=== PATIENT | male | born 2000 | race African-American/Black ===

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

== ENCOUNTER 2021-01-04 01:36 | Emergency (ER) | payer OTHER ==
[2021-01-04] MEDS ORDERED: NA CHLORIDE 0.9% 1,000 ML ONE (02:01)
[2021-01-04 02:05] LABS: Urine Blood Negative (Negative); Urine Glucose Negative (Negative); Urine Protein Negative (Negative)
[2021-01-04 02:21] LABS: Basophils % 0.8 % (0-1.3); Hematocrit 47.6 % (39.6-49.0); Lymphocytes % 22.7 % (15.3-44.8); MPV 9.4 fL (7.6-11.3); RBC Red Blood Cell Count 5.44 M/uL (4.33-5.43)
[2021-01-04 02:38] LABS: Protime INR 1.19
[2021-01-04 02:55] LABS: ALT/SGPT 18 U/L (12-78); AST/SGOT 23 U/L (15-37); Albumin 4.3 g/dL (3.4-5.0); Alkaline Phosphatase 90 U/L (45-117); BUN Blood Urea Nitrogen 9 mg/dL (7-18); Bicarbonate 28 mmol/L (21-32); Bilirubin Direct 0.3 mg/dL (0-0.2); Bilirubin Total 1.8 mg/dL (0.2-1.0); Glucose Level 126 mg/dL (74-106); Protein, Total 7.8 g/dL (6.4-8.2); Sodium Level 139 mmol/L (136-145)
[2021-01-04 02:55] LABS: Barbiturates NEGATIVE (NEGATIVE); Benzodiazepines NEGATIVE (NEGATIVE); Cocaine NEGATIVE (NEGATIVE); METHAMPHETAM NEGATIVE (NEGATIVE); Methadone NEGATIVE (NEGATIVE); Opiates NEGATIVE (NEGATIVE); Phencyclidine NEGATIVE (NEGATIVE); THC Cannibis POSITIVE (NEGATIVE)
--- NOTE | 2021-01-04 04:51 | ER ---
Nurse's Notes [facility] Name: Selvin Fontanez Age: 20 yrs Sex: Male : 2000 Arrival Date: 01/04/2021 Time: 01:37 Bed 2 Private MD: Diagnosis: Alcohol Intoxication;Cannabis abuse with intoxication Presentation: 01/04 01:43 Chief complaint: Parent and/or Guardian states: friend bought pt home unresponsive, was em at a [employer] party and may have had alcohol/drugs at the [employer] party, pt unresponsive in triage. Coronavirus screen: Client denies travel out of the [place] in the last 14 days. Ebola Screen: Patient negative for fever greater than or equal to 101.5 degrees Fahrenheit, and additional compatible Ebola Virus Disease symptoms Patient denies exposure to infectious person. Patient denies travel to an Ebola-affected area in the 21 days before illness onset. No symptoms or risks identified at this time. Initial Sepsis Screen: Does the patient meet any 2 criteria? No. Patient's initial sepsis screen is negative. Does the patient have a suspected source of infection? No. Patient's initial sepsis screen is negative. Risk Assessment: Do you want to hurt yourself or someone else? Patient reports no desire to harm self or others. Onset of symptoms was January 04, 2021. 01:43 Method Of Arrival: Wheelchair em 01:43 Acuity: ABDIRASHID 2 em Historical: - Allergies: 01:45 No Known Allergies; em - PMHx: 01:45 None; em - PSHx: 01:45 None; em - Immunization history:: Adult Immunizations up to date. - Social history:: Smoking status: Patient denies any tobacco usage or history of. Screenin:45 Abuse screen: Denies threats or abuse. Nutritional screening: No deficits noted. jb4 Tuberculosis screening: No symptoms or risk factors identified. Fall Risk No IV (0 pts). Mental Status- Overestimates/Forgets Limitations (15 pts.). Total Cross Fall Scale indicates Low Risk Score (25-44 pts). Fall prevention measures have been instituted. Side Rails Up X 2 Placed close to Nursing Station Frequent Obs/Assesments occuring Family Present and informed to notify staff if they need to leave bedside As available Patient and Family Educated on Fall Prevention Program and strategies. Assessment: 01:45 General: Appears in no apparent distress. comfortable, Behavior is uncooperative. Pain: jb4 Unable to use pain scale. Patient is disoriented. Neuro: Level of Consciousness is confused, lethargic, Oriented to none. Cardiovascular: Patient's skin is warm and dry. Respiratory: Airway is patent Respiratory effort is even, unlabored, Respiratory pattern is regular, symmetrical. GI: No signs and/or symptoms were reported involving the gastrointestinal system. : No signs and/or symptoms were reported regarding the genitourinary system. EENT: No signs and/or symptoms were reported regarding the EENT system. Derm: Skin is intact, Skin is dry, Skin is normal, Skin temperature is warm. Musculoskeletal: Circulation, motion, and sensation intact. Range of motion: intact in all extremities. 01:45 Reassessment: Pt currently in CT. jb4 03:00 Reassessment: Pt is resting in bed with eyes closed. Respiration are equal and jb4 unlabored. No s/s of pain or distress noted. Parents remain at the bedside. Provider notified of ETOH level, no new orders at this time. 04:12 Reassessment: Pt started to desat, rapid response button hit by IAN Mcintosh. Placed on jb4 Non-rebreather \T\ 15L, no response to sternal rub. Provider at the bedside. Attempted to insert nasal trumpet. Pt awoke to painful stimuli. Satting 100% on RA. Remains Lethargic, is confused, claims to not recognize his parents. 05:06 Reassessment: Patient appears in no apparent distress at this time. Patient and/or jb4 family updated on plan of care and expected duration. Pain level reassessed. Patient is alert, oriented x 3, equal unlabored respirations, skin warm/dry/pink. Vital Signs: 01:43 BP 102 / 65; Pulse 65; Resp 18; Temp 97.8; Pulse Ox 100% on R/A; Weight 90.72 kg; em 02:30 BP 104 / 68; Pulse 78; Resp 22; Pulse Ox 96% on R/A; lp1 03:30 BP 117 / 81; Pulse 81; Resp 20; Pulse Ox 100% on R/A; jb4 04:15 BP 106 / 69; Pulse 84; Resp 21; Pulse Ox 100% on R/A; jb4 ED Course: 01:37 Patient arrived in ED. am4 01:45 Triage completed. em 01:45 Arm band placed on. em 01:45 Patient has correct armband on for positive identification. Bed in low position. Call jb4 light in reach. Side rails up X 1. Seizure precautions initiated. business insight and analytics manager on. Pulse ox on. NIBP on. 01:45 Initial lab(s) drawn, by hi, sent to lab. Inserted saline lock: 18 gauge in right jb4 antecubital area, using aseptic technique. Blood collected. 01:47 Brayden Pisano MD is Attending Physician. [facility] 02:21 Ted Anderson, RN is Primary Nurse. jb4 02:42 CT Head C Spine In Process Unspecified. EDMS 05:06 No provider procedures requiring assistance completed. IV discontinued, intact, jb4 bleeding controlled, No redness/swelling at site. Pressure dressing applied. Administered Medications: 01:46 Drug: NS 0.9% 1000 ml Route: IV; Rate: 1 bolus; Site: right antecubital; em 02:45 Follow up: Response: No adverse reaction; IV Status: Completed infusion; IV Intake: jb4 1000ml Intake: 02:45 IV: 1000ml; Total: 1000ml. jb4 Outcome: 04:50 Discharge ordered by . [facility] 05:06 Discharged to home via wheelchair, with family. jb4 05:06 Condition: stable 05:06 Discharge instructions given to patient, family, Instructed on discharge instructions, follow up and referral plans. Demonstrated understanding of instructions, follow-up care. 05:08 Patient left the ED. jb4 Signatures: Dispatcher [employer] Juan A Vasquez, RN RN Dayna Holley, RN RN 1 Ted Anderson, RN RN jb4 Brayden Pisano MD MD mh7 Martinez, Ashley [facility]
--- NOTE | 2021-01-04 04:51 | EDPHYS ---
Physician Documentation [facility] Name: Selvin Fontanez Age: 20 yrs Sex: Male : 2000 Arrival Date: 01/04/2021 Time: 01:37 Bed 2 Private MD: ED Physician Brayden Pisano HPI: 01/04 03:57 This 20 yrs old Black Male presents to ER via Wheelchair with complaints of Altered mh7 Mental Status. 03:57 The patient presents with decreased mental status. Onset: The symptoms/episode mh7 began/occurred today. Onset: The symptoms/episode began/occurred at an unknown time. Possible causes: drug use, Was at a [employer] party, alcohol, Was at a alliance party today. Associated signs and symptoms: The patient has no apparent associated signs or symptoms. Current symptoms: In the emergency department the patient's symptoms are unchanged from the initial presentation. Patient's baseline: Neuro: alert and fully oriented, Motor: no deficits, Ambulation: walks without assistance, Speech: normal. Historical: - Allergies: 01:45 No Known Allergies; em - PMHx: 01:45 None; em - PSHx: 01:45 None; em - Immunization history:: Adult Immunizations up to date. - Social history:: Smoking status: Patient denies any tobacco usage or history of. ROS: 03:57 Unable to obtain ROS due to altered mental status. mh7 Exam: 03:57 Head/Face: Normocephalic, atraumatic. Eyes: Pupils equal round and reactive to light, mh7 extra-ocular motions intact. Lids and lashes normal. Conjunctiva and sclera are non-icteric and not injected. Cornea within normal limits. Periorbital areas with no swelling, redness, or edema. ENT: Nares patent. No nasal discharge, no septal abnormalities noted. Tympanic membranes are normal and external auditory canals are clear. Oropharynx with no redness, swelling, or masses, exudates, or evidence of obstruction, uvula midline. Mucous membranes moist. Neck: Trachea midline, no thyromegaly or masses palpated, and no cervical lymphadenopathy. Supple, full range of motion without nuchal rigidity, or vertebral point tenderness. No Meningismus. Chest/axilla: Normal chest wall appearance and motion. Nontender with no deformity. No lesions are appreciated. Cardiovascular: Regular rate and rhythm with a normal S1 and S2. No gallops, murmurs, or rubs. Normal PMI, no JVD. No pulse deficits. Respiratory: Lungs have equal breath sounds bilaterally, clear to auscultation and percussion. No rales, rhonchi or wheezes noted. No increased work of breathing, no retractions or nasal flaring. Abdomen/GI: Soft, non-tender, with normal bowel sounds. No distension or tympany. No guarding or rebound. No evidence of tenderness throughout. Back: No spinal tenderness. No costovertebral tenderness. Full range of motion. Skin: Warm, dry with normal turgor. Normal color with no rashes, no lesions, and no evidence of cellulitis. MS/ Extremity: Pulses equal, no cyanosis. Neurovascular intact. Full, normal range of motion. 03:57 Constitutional: The patient appears Somnolent, arousal to tactile stimuli 03:57 Neuro: Orientation: unable to test, AMS, Mentation: unable to test, AMS, Memory: unable to test, the patient is clinically intoxicated, Cranial nerves: unable to test, AMS, Cerebellar function: unable to test, AMS, Motor: moves all fours, Sensation: no obvious gross deficits, Gait: not tested. seizure activity, is not displayed by the patient, Abnormal movements: there are no abnormal movements. Vital Signs: 01:43 BP 102 / 65; Pulse 65; Resp 18; Temp 97.8; Pulse Ox 100% on R/A; Weight 90.72 kg; em 02:30 BP 104 / 68; Pulse 78; Resp 22; Pulse Ox 96% on R/A; lp1 03:30 BP 117 / 81; Pulse 81; Resp 20; Pulse Ox 100% on R/A; jb4 04:15 BP 106 / 69; Pulse 84; Resp 21; Pulse Ox 100% on R/A; jb4 MDM: 04:48 Differential Diagnosis: electrolyte abnormality, alcohol intoxication, hypoglycemia, mh7 intracranial bleed, overdose, seizure, volume depletion. Data reviewed: vital signs, nurses notes, lab test result(s), CBC, drug level(s), alcohol, electrolytes, urinalysis, urine drug screen, EKG, radiologic studies, CT scan. Data interpreted: Pulse oximetry: on room air is 100 %. Interpretation: normal. Counseling: I had a detailed discussion with the patient and/or guardian regarding: the historical points, exam findings, and any diagnostic results supporting the discharge/admit diagnosis, lab results, radiology results, the need for outpatient follow up, to return to the emergency department if symptoms worsen or persist or if there are any questions or concerns that arise at home. Response to treatment: the patient's symptoms have resolved after treatment, the patient's blood pressure is in an acceptable range, mental status has returned to baseline, the patient no longer shows bradycardia, the patient is not short of breath, the patient is not tachycardic, the patient's pain is gone, the patient's temperature has normalized. 04:50 Patient medically screened. [facility] 01/04 01:46 Order name: Acetaminophen 01/04 01:46 Order name: Basic Metabolic Panel; Complete Time: 04:11 01/04 01:46 Order name: CBC with Diff; Complete Time: 02:43 01/04 01:46 Order name: ETOH Level; Complete Time: 04:11 01/04 01:46 Order name: Hepatic Function; Complete Time: 04:11 01/04 01:46 Order name: PT-INR; Complete Time: 02:43 01/04 01:46 Order name: Ptt, Activated; Complete Time: 02:43 01/04 01:46 Order name: Salicylate; Complete Time: 04:11 01/04 01:46 Order name: Urine Drug Screen; Complete Time: 04:11 01/04 01:46 Order name: EKG; Complete Time: 01:47 01/04 01:47 Order name: Acetaminophen Level; Complete Time: 04:11 [facility] 01/04 01:53 Order name: CT Head C Spine [facility] 01/04 02:04 Order name: Urine Dipstick-Ancillary; Complete Time: 02:43 [facility] 01/04 01:46 Order name: EKG - Nurse/Tech; Complete Time: 02: 01/04 01:46 Order name: IV Saline Lock; Complete Time: 02: 01/04 01:46 Order name: Labs collected and sent; Complete Time: 02:21 01/04 01:46 Order name: Suicide Screening ([place]); Complete Time: 02: 01/04 01:46 Order name: Urine Dipstick-Ancillary (obtain specimen); Complete Time: 02:21 em Administered Medications: 01:46 Drug: NS 0.9% 1000 ml Route: IV; Rate: 1 bolus; Site: right antecubital; em 02:45 Follow up: Response: No adverse reaction; IV Status: Completed infusion; IV Intake: jb4 1000ml Disposition: 01/04/21 04:50 Discharged to Home. Impression: Alcohol Intoxication, Cannabis abuse with intoxication. - Condition is Stable. - Discharge Instructions: Cannabis Use Disorder, Alcohol Intoxication, [id number]. - Medication Reconciliation Form, Thank You Letter, Antibiotic Education, Prescription Opioid Use form. - Follow up: Private Physician; When: 1 - 2 days; Reason: Worsening of condition, Recheck today's complaints, Continuance of care, Re-evaluation by your physician. - Problem is new. - Symptoms have improved. Signatures: Dispatcher [employer] EDJuan A Adams RN RN em Ted Anderson RN RN jb4 Brayden Pisano MD MD mh7 Corrections: (The following items were deleted from the chart) 05:08 04:50 01/04/2021 04:50 Discharged to Home. Impression: Alcohol Intoxication; Cannabis jb4 abuse with intoxication. Condition is Stable. Forms are Medication Reconciliation Form, Thank You Letter, Antibiotic Education, Prescription Opioid Use. Follow up: Private Physician; When: 1 - 2 days; Reason: Worsening of condition, Recheck today's complaints, Continuance of care, Re-evaluation by your physician. Problem is new. Symptoms have improved. mh7
[2021-01-04 05:12] VITALS: TEMP 97.8
[2021-01-04 05:15] VITALS: O2SAT 100
[2021-01-04 05:17] VITALS: BP 106/69
--- NOTE | 2021-01-05 08:25 | EKG ---
Test Date: 2021-01-04 Test Time: 01:48:14 [employer]: FRANCIS MEASUREMENT RESULTS: Intervals: Rate: 85 OR: 172 QRSD: 90 QT: 356 QTc: 423 [place]: P: 75 OR: 172 QRS: 92 T: 73 INTERPRETIVE STATEMENTS: Normal sinus rhythm Rightward axis Early repolarization Borderline ECG No previous ECG available for comparison Electronically Signed On 01-05-21 08:23:59 CDT by Quentin Banegas
--- NOTE | 2021-01-05 10:56 | RAD REPORT ---
EXAM DESCRIPTION: CT - [facility] - 01/04/2021 6:39 am CLINICAL HISTORY: The patient is 20 years old and is Male; AMS TECHNIQUE: Axial computed tomography images of the head/brain and cervical spine without intravenous contrast. Sagittal and coronal reformatted images were created and reviewed. This CT exam was pe rformed using one or more of the following dose reduction techniques: automated exposure control, a djustment of the mA and/or kV according to patient size, and/or use of iterative reconstruction techn ique. COMPARISON: No relevant prior studies available. FINDINGS: Brain: Unremarkable. No hemorrhage. No significant white matter disease. No edema. Ventricles: Unremarkable. No ventriculomegaly. Skull: No acute fracture. Sinuses: Unremarkable as visualized. No acute sinusitis. Mastoid air cells: Unremarkable as visualized. No mastoid effusion. Vertebrae: Unremarkable. No acute fracture. Normal alignment. Discs/spinal canal/neural foramina: No acute findings. No spinal canal stenosis. Soft tissues: Unremarkable. IMPRESSION: No acute intracranial abnormality. No acute fracture or subluxation. Electronically signed by: Gerry Blank MD 01/04/2021 3:09 AM CDT Due to temporary technical issues with the PACS/Fluency reporting system, reports are being signed by the in house radiologists without review as a courtesy to insure prompt reporting. The interpreting radiologist is fully responsible for the content of the report.
== END 2021-01-04 05:08 | disposition home or self-care (01) ==
LOC: ER 01:36
DX: F10.129 Alcohol abuse with intoxication, unspecified (principal); F12.129 Cannabis abuse with intoxication, unspecified
CPT/HCPCS: 93005; 85025; 80048; 36415; 80320; 80329 ×2; 85610; 80076; 80307 ×8; 85730; 81003; 70450; 72125; J7030; 96360; 99284